=== PATIENT | female | born 1960 | race Caucasian/White ===

== ENCOUNTER 2019-04-10 17:45 | Emergency (ER) | payer OTHER ==
[~2019-04-10] VITALS: Ht 167.6 cm; Wt 59.0 kg
[2019-04-10] MEDS ORDERED: ONDANSETRON ODT 4 MG TAB.RAPDIS SL ONE (19:00)
[2019-04-10] MEDS ORDERED: HYDROCODONE/APAP 5-325MG TABLET PO ONE (19:00)
[2019-04-10] MEDS ORDERED: AMOXICILLIN-CLAVUL 875-125MG TABLET PO ONE (19:00)
[2019-04-10] MEDS ORDERED: SODIUM BICARBONATE 4.2 % (NEUT) 5 ML VIAL TP ONE (19:00)
[2019-04-10] MEDS ORDERED: LIDOCAINE 1%-EPI 1:100,000 20 ML VIAL IJ ONE (19:00)
[2019-04-10] MEDS ORDERED: TDAP DIPH,PERTUSS,TET VAC/PF 0.5 ML DISP.SYRIN IM ONE ×2 (19:00→19:27)
[2019-04-10] MEDS ORDERED: CEFTRIAXONE 1 G VIAL IM ONE (19:00)
[2019-04-10] MEDS ORDERED: HYDROCODONE/APAP 5-325MG TABLET ONE (19:26)
[2019-04-10] MEDS ORDERED: AMOXICILLIN-CLAVUL 875-125MG TABLET ONE (19:26)
[2019-04-10] MEDS ORDERED: CEFTRIAXONE 1 G VIAL ONE (19:26)
[2019-04-10] MEDS ORDERED: LIDOCAINE HCL 1% 20 ML VIAL ONE (19:26)
--- NOTE | 2019-04-10 19:55 | NUR ---
Dr Jacobsen into do suture.
[2019-04-10] MEDS ORDERED: ONDANSETRON ODT 4 MG TAB.RAPDIS ONE (19:56)
--- NOTE | 2019-04-10 20:27 | NUR ---
Patient discharged to home in stable conditon with ester taking patient home. Written and verbal after care instructions given. Patient verbalizes understanding of instructions.
[2019-04-10 20:28] VITALS: BP 135/88
== END 2019-04-10 20:28 | disposition home or self-care (01) ==
LOC: ER 17:49
DX: S81.811A Laceration without foreign body, right lower leg, initial encounter (principal); S81.851A Open bite, right lower leg, initial encounter; J45.909 Unspecified asthma, uncomplicated; Z88.1 Allergy status to other antibiotic agents; W54.0XXA Bitten by dog, initial encounter; Y93.89 Activity, other specified; Y92.89 Other specified places as the place of occurrence of the external cause; Y99.8 Other external cause status
CPT/HCPCS: 12002; 90471; 90715; 96372; 99284; J0696; J3490 ×2; A4663; Q0162